=== PATIENT | male | born 1975 | race Caucasian/White ===

== ENCOUNTER 2023-03-01 12:33 | Emergency (ER) | payer OTHER ==
[2023-03-01 13:05] VITALS: BP 114/82; PULSE 81; RESP 18; TEMP 98.3; BMI 24.4
[2023-03-01] MEDS ORDERED: LIDOCAINE 4% PATCH TP ONE ×2 (13:24→13:33)
[2023-03-01] MEDS ORDERED: KETOROLAC TROMETHAMINE 30 MG/1 ML VIAL IM ONE (13:25)
[2023-03-01] MEDS ORDERED: KETOROLAC TROMETHAMINE 30 MG/1 ML VIAL ONE (13:33)
== END 2023-03-01 14:25 | disposition home or self-care (01) ==
LOC: JERFT 12:33
PROC: 3E0233Z Introduction of Anti-inflammatory into Muscle, Percutaneous Approach (ICD-10-PCS; principal; 2023-03-01)
DX: S39.012A Strain of muscle, fascia and tendon of lower back, initial encounter (principal); M54.50 Low back pain, unspecified; X50.0XXA Overexertion from strenuous movement or load, initial encounter; Y99.0 Civilian activity done for income or pay
CPT/HCPCS: 72100-TC-FY; 99284-25